=== PATIENT | female | born 1960 ===

== ENCOUNTER 2025-01-06 00:04 | Outpatient (RCR) | payer MEDICARE, SELFPAY ==
[2024-12-21] MEDS: Normal Saline Flush 10 ML SYR IVP (07:55)
[2024-12-21 07:57] LABS: Absolute Basophil Count 0.02 10^3/uL (0.0-0.2); Absolute Eosinophil Count 0.51 10^3/uL (0.0-0.7); Absolute Lymphocyte Count 0.81 10^3/uL (1.2-3.4); Absolute Monocyte Count 0.42 10^3/uL (0.1-0.8); Absolute Neutrophil Count 1.52 10^3/uL (1.2-6.7); Basophils % 0.6 %; Eosinophils % 15.5 %; HCT 33.6 % (36.0-46.0); HGB 11.3 g/dL (11.2-15.7); Lymphocytes % 24.7 %; MCH 28.5 pg (27.0-33.0); MCHC 33.6 % (32.0-36.0); MCV 85 fL (80-95); MPV 9.4 fL (8.0-11.0); Monocytes % 12.8 %; Neutrophils % 46.4 %; Platelet Count 268 10^3/uL (130-400); RBC 3.97 10^6/uL (3.93-5.22); RDW 12.4 % (11.7-14.6); WBC 3.28 10^3/uL (4.4-10.8)
[2024-12-21 08:23] LABS: ALT 28 U/L (14-59); AST 21 U/L (15-37); Albumin 3.5 g/dL (3.4-5.0); Alkaline Phosphatase 61 U/L (46-116); Anion Gap 7.5 mmol/L (3-11); BUN 15 mg/dL (7-18); Bilirubin, Total 0.5 mg/dL (0.2-1.0); CO2 28.5 mmol/L (21.0-32.0); CREATININE 0.8 mg/dL (0.55-1.02); Calcium 9.2 mg/dL (8.5-10.1); Chloride 104 mmol/L (98-107); Estimated GFR 82.23 (mL/min/1.73m2); Glucose 93 mg/dL (74-106); Potassium 3.2 mmol/L (3.5-5.1); Sodium 140 mmol/L (136-145); Total Protein 6.8 g/dL (6.4-8.2)
[2024-12-21 19:21] LABS: CEA 2.8 ng/mL (See Note)
[2024-12-23 09:50] VITALS: BP 129/76; PULSE 78; RESP 16; TEMP 36.4; O2SAT 98
[2024-12-23] MEDS: Normal Saline Flush 10 ML SYR IVP (09:57)
[2025-01-04] MEDS: Normal Saline Flush 10 ML SYR IVP (08:04)
[2025-01-04 08:35] LABS: Absolute Basophil Count 0.02 10^3/uL (0.0-0.2); Absolute Eosinophil Count 0.39 10^3/uL (0.0-0.7); Absolute Lymphocyte Count 0.75 10^3/uL (1.2-3.4); Absolute Monocyte Count 0.49 10^3/uL (0.1-0.8); Absolute Neutrophil Count 1.41 10^3/uL (1.2-6.7); Basophils % 0.7 %; Eosinophils % 12.7 %; HCT 31.6 % (36.0-46.0); HGB 10.7 g/dL (11.2-15.7); Lymphocytes % 24.5 %; MCH 28.6 pg (27.0-33.0); MCHC 33.9 % (32.0-36.0); MCV 85 fL (80-95); MPV 9.7 fL (8.0-11.0); Neutrophils % 46.1 %; Platelet Count 220 10^3/uL (130-400); RBC 3.74 10^6/uL (3.93-5.22); RDW 13.5 % (11.7-14.6); WBC 3.06 10^3/uL (4.4-10.8)
[2025-01-04 09:25] LABS: ALT 31 U/L (14-59); AST 25 U/L (15-37); Albumin 3.4 g/dL (3.4-5.0); Alkaline Phosphatase 66 U/L (46-116); Anion Gap 7.5 mmol/L (3-11); BUN 22 mg/dL (7-18); Bilirubin, Total 0.3 mg/dL (0.2-1.0); CO2 27.5 mmol/L (21.0-32.0); CREATININE 0.7 mg/dL (0.55-1.02); Calcium 8.9 mg/dL (8.5-10.1); Chloride 105 mmol/L (98-107); Estimated GFR 96.52 (mL/min/1.73m2); Glucose 90 mg/dL (74-106); Potassium 3.3 mmol/L (3.5-5.1); Sodium 140 mmol/L (136-145); Total Protein 6.6 g/dL (6.4-8.2)
[2025-01-04 18:22] LABS: CEA 4.2 ng/mL (See Note)
[2025-01-06 10:01] VITALS: BP 149/84; PULSE 75; RESP 16; TEMP 36.1; O2SAT 100
[2025-01-06] MEDS: Normal Saline Flush 10 ML SYR IVP (10:15)
== END 2025-01-08 23:59 | disposition home or self-care (01) ==
LOC: INF 00:04
PROVIDERS: Nurse Practitioner Family; PCP Internal Medicine; Visit Provider Internal Medicine Hematology & Oncology
DX: C20 Malignant neoplasm of rectum (principal); Z79.899 Other long term (current) drug therapy; Z45.2 Encounter for adjustment and management of vascular access device
CPT/HCPCS: 36591; 80053; 96523; 82378; 85025

== ENCOUNTER 2025-02-01 01:46 | Outpatient (RCR) | payer MEDICARE, SELFPAY ==
[2025-01-18] MEDS: Normal Saline Flush 10 ML SYR IVP (07:36)
[2025-01-18 07:42] LABS: Abs Immature Grans 0.01 10^3/uL (0.0-0.06); HCT 30.7 % (36.0-46.0); HGB 10.4 g/dL (11.2-15.7); Immature Grans % 0.3 %; MCH 29.1 pg (27.0-33.0); MCHC 33.9 % (32.0-36.0); MCV 86 fL (80-95); MPV 9.3 fL (8.0-11.0); Platelet Count 205 10^3/uL (130-400); RBC 3.57 10^6/uL (3.93-5.22); RDW 14.8 % (11.7-14.6); RDW-SD 43.8 fL; WBC 3.27 10^3/uL (4.4-10.8)
[2025-01-18 08:07] LABS: ALT 67 U/L (14-59); AST 49 U/L (15-37); Albumin 3.2 g/dL (3.4-5.0); Alkaline Phosphatase 88 U/L (46-116); Anion Gap 10.0 mmol/L (3-11); BUN 17 mg/dL (7-18); Bilirubin, Total 0.5 mg/dL (0.2-1.0); CO2 23.0 mmol/L (21.0-32.0); Calcium 8.9 mg/dL (8.5-10.1); Chloride 106 mmol/L (98-107); Estimated GFR 95.92 (mL/min/1.73m2); Glucose 91 mg/dL (74-106); Potassium 4.1 mmol/L (3.5-5.1); Sodium 139 mmol/L (136-145); Total Protein 6.6 g/dL (6.4-8.2)
[2025-01-18 09:45] LABS: Magnesium 1.7 mg/dL (1.8-2.4)
[2025-02-01] MEDS: Normal Saline Flush 10 ML SYR IVP (07:49)
[2025-02-01 07:56] LABS: Abs Immature Grans 0.01 10^3/uL (0.0-0.06); HCT 30.7 % (36.0-46.0); HGB 10.2 g/dL (11.2-15.7); Immature Grans % 0.4 %; MCH 28.7 pg (27.0-33.0); MCHC 33.2 % (32.0-36.0); MCV 87 fL (80-95); MPV 9.4 fL (8.0-11.0); Platelet Count 246 10^3/uL (130-400); RBC 3.55 10^6/uL (3.93-5.22); RDW 15.7 % (11.7-14.6); RDW-SD 49.4 fL; WBC 2.52 10^3/uL (4.4-10.8)
[2025-02-01 08:22] LABS: ALT 197 U/L (14-59); AST 187 U/L (15-37); Albumin 3.3 g/dL (3.4-5.0); Alkaline Phosphatase 185 U/L (46-116); Anion Gap 10.2 mmol/L (3-11); BUN 23 mg/dL (7-18); Bilirubin, Total 0.5 mg/dL (0.2-1.0); CO2 23.8 mmol/L (21.0-32.0); Calcium 9.3 mg/dL (8.5-10.1); Chloride 104 mmol/L (98-107); Estimated GFR 99.55 (mL/min/1.73m2); Glucose 93 mg/dL (74-106); Potassium 3.7 mmol/L (3.5-5.1); Sodium 138 mmol/L (136-145); Total Protein 6.6 g/dL (6.4-8.2)
[2025-02-01 19:24] LABS: CEA 5.2 ng/mL (See Note)
== END 2025-02-08 23:59 | disposition home or self-care (01) ==
LOC: INF 01:46
PROVIDERS: Nurse Practitioner Adult Health; Nurse Practitioner Family; PCP Internal Medicine; Visit Provider Internal Medicine Hematology & Oncology
DX: C20 Malignant neoplasm of rectum (principal); Z79.899 Other long term (current) drug therapy; R25.2 Cramp and spasm; Z45.2 Encounter for adjustment and management of vascular access device
CPT/HCPCS: 36591; 80053; 82378; 83735; 85025

== ENCOUNTER 2025-02-03 00:09 | Outpatient (RCR) | payer MEDICARE, SELFPAY ==
[2025-01-20] MEDS: Normal Saline Flush 10 ML SYR IVP (09:53)
[2025-02-03 08:43] VITALS: BP 132/72; PULSE 75; RESP 16; TEMP 36.8; O2SAT 96
[2025-02-03] MEDS: Normal Saline Flush 10 ML SYR IVP (08:46)
== END 2025-02-08 23:59 | disposition home or self-care (01) ==
LOC: INF 00:09
PROVIDERS: PCP Internal Medicine; Visit Provider Internal Medicine Hematology & Oncology
DX: C20 Malignant neoplasm of rectum (principal); Z45.2 Encounter for adjustment and management of vascular access device
CPT/HCPCS: 36591; 80053; 96523; 82378; 85025

== ENCOUNTER 2025-03-03 00:13 | Outpatient (RCR) | payer MEDICARE, SELFPAY ==
[2025-02-15 07:52] LABS: Abs Immature Grans 0.01 10^3/uL (0.0-0.06); HCT 30.0 % (36.0-46.0); HGB 10.0 g/dL (11.2-15.7); Immature Grans % 0.3 %; MCH 29.3 pg (27.0-33.0); MCHC 33.3 % (32.0-36.0); MCV 88 fL (80-95); MPV 9.3 fL (8.0-11.0); Platelet Count 249 10^3/uL (130-400); RBC 3.41 10^6/uL (3.93-5.22); RDW 16.6 % (11.7-14.6); RDW-SD 52.5 fL; WBC 3.55 10^3/uL (4.4-10.8)
[2025-02-15 08:08] LABS: ALT 129 U/L (14-59); AST 114 U/L (15-37); Albumin 3.4 g/dL (3.4-5.0); Alkaline Phosphatase 196 U/L (46-116); Anion Gap 7.9 mmol/L (3-11); BUN 19 mg/dL (7-18); Bilirubin, Total 0.6 mg/dL (0.2-1.0); CO2 27.1 mmol/L (21.0-32.0); Calcium 9.3 mg/dL (8.5-10.1); Chloride 103 mmol/L (98-107); Estimated GFR 95.92 (mL/min/1.73m2); Glucose 95 mg/dL (74-106); Potassium 3.9 mmol/L (3.5-5.1); Sodium 138 mmol/L (136-145); Total Protein 6.6 g/dL (6.4-8.2)
[2025-02-15] MEDS: Normal Saline Flush 10 ML SYR IVP (08:26)
[2025-02-15 19:20] LABS: CEA 3.9 ng/mL (See Note)
[2025-02-17 08:30] VITALS: BP 137/75; PULSE 73; RESP 16; TEMP 36.9; O2SAT 99
[2025-02-17] MEDS: Normal Saline Flush 10 ML SYR IVP (08:34)
[2025-03-01] MEDS: Normal Saline Flush 10 ML SYR IVP (11:05)
[2025-03-01 11:10] LABS: Abs Immature Grans 0.01 10^3/uL (0.0-0.06); HCT 30.4 % (36.0-46.0); HGB 10.0 g/dL (11.2-15.7); Immature Grans % 0.2 %; MCH 29.3 pg (27.0-33.0); MCHC 32.9 % (32.0-36.0); MCV 89 fL (80-95); MPV 9.3 fL (8.0-11.0); Platelet Count 289 10^3/uL (130-400); RBC 3.41 10^6/uL (3.93-5.22); RDW 17.1 % (11.7-14.6); RDW-SD 55.3 fL; WBC 4.09 10^3/uL (4.4-10.8)
[2025-03-01 11:32] LABS: ALT 33 U/L (14-59); AST 19 U/L (15-37); Albumin 3.6 g/dL (3.4-5.0); Alkaline Phosphatase 129 U/L (46-116); Anion Gap 9.3 mmol/L (3-11); BUN 19 mg/dL (7-18); Bilirubin, Total 0.6 mg/dL (0.2-1.0); CO2 25.7 mmol/L (21.0-32.0); Calcium 9.5 mg/dL (8.5-10.1); Chloride 104 mmol/L (98-107); Estimated GFR 95.92 (mL/min/1.73m2); Glucose 94 mg/dL (74-106); Potassium 3.9 mmol/L (3.5-5.1); Sodium 139 mmol/L (136-145); Total Protein 7.0 g/dL (6.4-8.2)
[2025-03-01 18:13] LABS: CEA 4.0 ng/mL (See Note)
[2025-03-03] MEDS: Normal Saline Flush 10 ML SYR IVP (12:30)
[2025-03-03 17:33] VITALS: BP 137/75; PULSE 73; RESP 16; TEMP 36.9; O2SAT 99
== END 2025-03-11 23:59 | disposition home or self-care (01) ==
LOC: INF 00:13
PROVIDERS: Nurse Practitioner Family; PCP Internal Medicine; Visit Provider Internal Medicine Hematology & Oncology
DX: C20 Malignant neoplasm of rectum (principal); Z45.2 Encounter for adjustment and management of vascular access device
CPT/HCPCS: 36591; 80053; 96523; 82378; 85025

== ENCOUNTER 2025-03-31 00:08 | Outpatient (RCR) | payer MEDICARE, SELFPAY ==
[2025-03-15] MEDS: Normal Saline Flush 10 ML SYR IVP (07:30)
[2025-03-15 08:36] LABS: Abs Immature Grans 0.01 10^3/uL (0.0-0.06); HCT 30.0 % (36.0-46.0); HGB 10.1 g/dL (11.2-15.7); Immature Grans % 0.3 %; MCH 30.9 pg (27.0-33.0); MCHC 33.7 % (32.0-36.0); MCV 92 fL (80-95); MPV 9.4 fL (8.0-11.0); Platelet Count 283 10^3/uL (130-400); RBC 3.27 10^6/uL (3.93-5.22); RDW 17.0 % (11.7-14.6); RDW-SD 56.6 fL; WBC 3.38 10^3/uL (4.4-10.8)
[2025-03-15 08:59] LABS: ALT 24 U/L (14-59); AST 19 U/L (15-37); Albumin 3.5 g/dL (3.4-5.0); Alkaline Phosphatase 111 U/L (46-116); Anion Gap 7.3 mmol/L (3-11); BUN 20 mg/dL (7-18); Bilirubin, Total 0.6 mg/dL (0.2-1.0); CO2 25.7 mmol/L (21.0-32.0); Calcium 9.3 mg/dL (8.5-10.1); Chloride 106 mmol/L (98-107); Glucose 93 mg/dL (74-106); Potassium 3.7 mmol/L (3.5-5.1); Sodium 139 mmol/L (136-145); Total Protein 6.9 g/dL (6.4-8.2)
[2025-03-15 17:28] LABS: CEA 4.5 ng/mL (See Note)
[2025-03-17 09:15] VITALS: BP 154/86; PULSE 84; RESP 19; TEMP 36.3; O2SAT 99
[2025-03-17] MEDS: Normal Saline Flush 10 ML SYR IVP (09:28)
[2025-03-29] MEDS: Normal Saline Flush 10 ML SYR IVP (07:19)
[2025-03-29 07:39] LABS: Abs Immature Grans 0.02 10^3/uL (0.0-0.06); HCT 28.5 % (36.0-46.0); HGB 9.5 g/dL (11.2-15.7); Immature Grans % 0.5 %; MCH 30.3 pg (27.0-33.0); MCHC 33.3 % (32.0-36.0); MCV 91 fL (80-95); MPV 9.6 fL (8.0-11.0); Platelet Count 229 10^3/uL (130-400); RBC 3.14 10^6/uL (3.93-5.22); RDW 16.3 % (11.7-14.6); RDW-SD 54.9 fL; WBC 4.08 10^3/uL (4.4-10.8)
[2025-03-29 07:56] LABS: ALT 60 U/L (14-59); AST 52 U/L (15-37); Albumin 3.3 g/dL (3.4-5.0); Alkaline Phosphatase 131 U/L (46-116); Anion Gap 9.1 mmol/L (3-11); BUN 18 mg/dL (7-18); Bilirubin, Total 0.5 mg/dL (0.2-1.0); CO2 24.9 mmol/L (21.0-32.0); Calcium 9.1 mg/dL (8.5-10.1); Chloride 105 mmol/L (98-107); Glucose 90 mg/dL (74-106); Potassium 3.6 mmol/L (3.5-5.1); Sodium 139 mmol/L (136-145); Total Protein 6.7 g/dL (6.4-8.2)
[2025-03-29 17:37] LABS: CEA 5.6 ng/mL (See Note)
[2025-03-31 14:36] VITALS: BP 154/86; PULSE 84; RESP 19; TEMP 36.3; O2SAT 99
[2025-03-31] MEDS: Normal Saline Flush 10 ML SYR IVP (14:37)
== END 2025-04-10 23:59 | disposition home or self-care (01) ==
LOC: INF 00:08
PROVIDERS: Nurse Practitioner Family; PCP Internal Medicine; Visit Provider Internal Medicine Hematology & Oncology
DX: C20 Malignant neoplasm of rectum (principal); Z45.2 Encounter for adjustment and management of vascular access device
CPT/HCPCS: 36591; 80053; 96523; 82378; 85025

== ENCOUNTER 2025-04-26 09:16 | Outpatient (REF) | payer MEDICARE, SELFPAY ==
[2025-04-26 19:15] LABS: Hepatitis A Antibody IgM Negative (Negative); Hepatitis C Ab w Rflx HCV PCR Negative (Negative)
[2025-04-26 20:07] LABS: HBs Antibody, Quant 12.5 mIU/mL (See Note); Hepatitis B Surface Ab Positive (See Note)
== END 2025-04-26 09:17 | disposition home or self-care (01) ==
LOC: LBN 09:16
PROVIDERS: PCP Internal Medicine; Visit Provider Nurse Practitioner Family
DX: C20 Malignant neoplasm of rectum (principal); R74.8 Abnormal levels of other serum enzymes
CPT/HCPCS: 86704; 86706; 86709; 86803; 87340

== ENCOUNTER 2025-05-10 09:00 | Outpatient (RCR) | payer MEDICARE, SELFPAY ==
[2025-04-12 07:20] LABS: Abs Immature Grans 0.03 10^3/uL (0.0-0.06); HCT 28.9 % (36.0-46.0); HGB 9.5 g/dL (11.2-15.7); Immature Grans % 0.5 %; MCH 30.2 pg (27.0-33.0); MCHC 32.9 % (32.0-36.0); MCV 92 fL (80-95); MPV 9.4 fL (8.0-11.0); Platelet Count 284 10^3/uL (130-400); RBC 3.15 10^6/uL (3.93-5.22); RDW 15.6 % (11.7-14.6); RDW-SD 51.9 fL; WBC 6.05 10^3/uL (4.4-10.8)
[2025-04-12] MEDS: Normal Saline Flush 10 ML SYR IVP (07:27)
[2025-04-12 07:38] LABS: ALT 49 U/L (14-59); AST 34 U/L (15-37); Albumin 3.4 g/dL (3.4-5.0); Alkaline Phosphatase 145 U/L (46-116); BUN 24 mg/dL (7-18); Bilirubin, Total 0.6 mg/dL (0.2-1.0); Calcium 8.7 mg/dL (8.5-10.1); Chloride 102 mmol/L (98-107); Glucose 100 mg/dL (74-106); Potassium 4.0 mmol/L (3.5-5.1); Sodium 138 mmol/L (136-145); Total Protein 7.0 g/dL (6.4-8.2)
[2025-04-12 07:51] LABS: Anion Gap 11.3 mmol/L (3-11); CO2 24.7 mmol/L (21.0-32.0)
[2025-04-12 17:50] LABS: CEA 4.1 ng/mL (See Note)
[2025-04-14] MEDS: Normal Saline Flush 10 ML SYR IVP (08:45)
[2025-04-26 07:30] LABS: Abs Immature Grans 0.02 10^3/uL (0.0-0.06); HCT 29.1 % (36.0-46.0); HGB 9.6 g/dL (11.2-15.7); Immature Grans % 0.4 %; MCH 29.8 pg (27.0-33.0); MCHC 33.0 % (32.0-36.0); MCV 90 fL (80-95); MPV 9.1 fL (8.0-11.0); Platelet Count 293 10^3/uL (130-400); RBC 3.22 10^6/uL (3.93-5.22); RDW 15.5 % (11.7-14.6); RDW-SD 51.3 fL; WBC 4.77 10^3/uL (4.4-10.8)
[2025-04-26 07:51] LABS: ALT 207 U/L (14-59); AST 236 U/L (15-37); Albumin 3.2 g/dL (3.4-5.0); Alkaline Phosphatase 184 U/L (46-116); Anion Gap 9.9 mmol/L (3-11); BUN 19 mg/dL (7-18); Bilirubin, Total 0.4 mg/dL (0.2-1.0); CO2 24.1 mmol/L (21.0-32.0); Calcium 9.1 mg/dL (8.5-10.1); Chloride 104 mmol/L (98-107); Glucose 95 mg/dL (74-106); Potassium 4.0 mmol/L (3.5-5.1); Sodium 138 mmol/L (136-145); Total Protein 6.8 g/dL (6.4-8.2)
[2025-04-26] MEDS: Normal Saline Flush 10 ML SYR IVP (07:55)
[2025-04-26 18:30] LABS: CEA 4.7 ng/mL (See Note)
[2025-05-10 09:29] LABS: Abs Immature Grans 0.04 10^3/uL (0.0-0.06); HCT 33.3 % (36.0-46.0); HGB 10.7 g/dL (11.2-15.7); Immature Grans % 0.9 %; MCH 29.1 pg (27.0-33.0); MCHC 32.1 % (32.0-36.0); MCV 91 fL (80-95); MPV 9.5 fL (8.0-11.0); Platelet Count 379 10^3/uL (130-400); RBC 3.68 10^6/uL (3.93-5.22); RDW 15.0 % (11.7-14.6); RDW-SD 50.2 fL; WBC 4.68 10^3/uL (4.4-10.8)
[2025-05-10 09:55] LABS: ALT 58 U/L (14-59); AST 41 U/L (15-37); Albumin 3.4 g/dL (3.4-5.0); Alkaline Phosphatase 148 U/L (46-116); Anion Gap 10.1 mmol/L (3-11); BUN 13 mg/dL (7-18); Bilirubin, Total 0.4 mg/dL (0.2-1.0); CO2 25.9 mmol/L (21.0-32.0); Calcium 9.2 mg/dL (8.5-10.1); Chloride 104 mmol/L (98-107); Glucose 87 mg/dL (74-106); Potassium 4.4 mmol/L (3.5-5.1); Sodium 140 mmol/L (136-145); Total Protein 7.1 g/dL (6.4-8.2)
[2025-05-10] MEDS: Normal Saline Flush 10 ML SYR IVP (10:29)
[2025-05-11 09:32] LABS: CEA 3.4 ng/mL (See Note)
== END 2025-05-11 23:59 | disposition home or self-care (01) ==
LOC: INF 09:00
PROVIDERS: Nurse Practitioner Family; PCP Internal Medicine; Visit Provider Internal Medicine Hematology & Oncology
DX: C20 Malignant neoplasm of rectum (principal); Z45.2 Encounter for adjustment and management of vascular access device
CPT/HCPCS: 36591; 80053; 96523; 82378; 85025

== ENCOUNTER 2025-05-24 00:13 | Outpatient (RCR) | payer MEDICARE, SELFPAY ==
[2025-05-12] MEDS: Normal Saline Flush 10 ML SYR IVP (11:10)
[2025-05-24] MEDS: Normal Saline Flush 10 ML SYR IVP (07:17)
[2025-05-24 07:37] LABS: Abs Immature Grans 0.01 10^3/uL (0.0-0.06); HCT 32.1 % (36.0-46.0); HGB 10.3 g/dL (11.2-15.7); Immature Grans % 0.3 %; MCH 28.8 pg (27.0-33.0); MCHC 32.1 % (32.0-36.0); MCV 90 fL (80-95); MPV 9.2 fL (8.0-11.0); Platelet Count 293 10^3/uL (130-400); RBC 3.58 10^6/uL (3.93-5.22); RDW 14.9 % (11.7-14.6); RDW-SD 48.9 fL; WBC 2.86 10^3/uL (4.4-10.8)
[2025-05-24 07:52] LABS: ALT 23 U/L (10-49); AST 28 U/L (<34); Albumin 4.2 g/dL (3.4-5.0); Alkaline Phosphatase 112 U/L (46-116); Anion Gap 5.5 mmol/L (3-11); BUN 22 mg/dL (9-23); Bilirubin, Total 0.50 mg/dL (0.2-1.2); CO2 26.5 mmol/L (20.0-31.0); Calcium 9.0 mg/dL (8.3-10.6); Chloride 107 mmol/L (98-107); Glucose 87 mg/dL (74-106); Potassium 4.4 mmol/L (3.5-5.1); Sodium 139 mmol/L (136-145); Total Protein 6.7 g/dL (5.7-8.2)
[2025-05-24 18:50] LABS: CEA 2.8 ng/mL (See Note)
== END 2025-06-10 23:59 | disposition home or self-care (01) ==
LOC: INF 00:13
PROVIDERS: Nurse Practitioner Family; PCP Internal Medicine; Visit Provider Internal Medicine Hematology & Oncology
DX: C20 Malignant neoplasm of rectum (principal); Z45.2 Encounter for adjustment and management of vascular access device
CPT/HCPCS: 36591; 80053; 96523; 82378; 85025